=== PATIENT | female | born 2000 | race Two or more races ===

== ENCOUNTER 2023-08-15 01:31 | Observation (INO) | payer MEDICAID ==
[~2023-08-15] VITALS: Ht 157.5 cm; Wt 78.9 kg
[2023-08-15] MEDS: MAALOX PLUS or MAALOX 30 ML PO ONE (02:29)
[2023-08-15] MEDS: LACTATED RINGER'S 1,000 ML IV ONE ×2 (02:50→04:03)
[2023-08-15] MEDS: NALBUPHINE HCL 10 MG/1ml INJECTION IV ONE (03:45)
[2023-08-15] MEDS ORDERED: miSOPROStol 50 MCG per PRE-CUT 1/2 TAB PO PRN (04:15)
[2023-08-15] MEDS: MORPHINE SULFATE 4 MG/ML SYR/VIAL IV ONE (04:27)
[2023-08-15 04:57] VITALS: BP 115/69; PULSE 98; RESP 92
== END 2023-08-15 06:00 | disposition home or self-care (01) ==
LOC: LDRP 01:31
PROVIDERS: ADMIT Obstetrics & Gynecology; ATTEND Obstetrics & Gynecology
DX: O26.613 Liver and biliary tract disorders in pregnancy, third trimester (principal); K80.20 Calculus of gallbladder without cholecystitis without obstruction; O26.893 Other specified pregnancy related conditions, third trimester; R10.11 Right upper quadrant pain; R10.12 Left upper quadrant pain; Z3A.34 34 weeks gestation of pregnancy
CPT/HCPCS: 59025; 76705; 76818; 81002; 94760; 96361; 96374; G0378; J2270; 96360